=== PATIENT | male | born 1965 | race Caucasian/White ===

== ENCOUNTER 2019-09-02 10:32 | Emergency (ER) | payer SELFPAY ==
[2019-09-02 10:40] VITALS: BP 148/87; PULSE 78; RESP 18; TEMP 37; O2SAT 98
--- NOTE | 2019-09-02 10:52 | ED.EAR ---
HPI - Ear Problem General Chief complaint: Ear Stated complaint: ringing in ear Time Seen by Provider: 09/02/19 10:52 Source: patient and RN notes reviewed Mode of arrival: ambulatory Limitations: no limitations History of Present Illness HPI Narrative: 54-year-old male who presents to [facility] with complaints of ringing in his right ear which started on Wednesday and increased on . Patient states that he has also had some left ear irritation and states that it feels like it is swollen and had used some ear drops in the past to his left ear put he is out. He states that he has had some cold symptoms of nasal drainage and some stuffiness but denies any fever or cough. MD Complaint: ear pain and other (ringing in ears) Location: bilateral Duration: intermittent Severity: mild Relieving factors: nothing Exacerbating factors: nothing Discharge from ear: Reports no Associated symptoms ear: tinnitus and rhinorrhea Treatment prior to arrival: other (sudafed) Related Data Allergies Allergy/AdvReac Type Severity Reaction Status Date / Time No Known Allergies Allergy Unverified 09/02/19 10:49 Review of Systems Review of Systems: All systems reviewed & are unremarkable except as noted in HPI and below Constitutional: Constitutional: Reports as per HPI and Reports no additional constitutional complaints Eyes: Eyes: Reports as per HPI and Reports no additional eye complaints ENT: Reports system reviewed and no additional complaints, except as documented and Reports nasal congestion Comments: tinnitus to right ear.some irritation to left ear canal Cardiovascular: Cardiovascular: Reports as per HPI and Reports no additional cardiovascular complaints Respiratory: Respiratory: Reports as per HPI and Reports no additional respiratory complaints Gastrointestinal: Gastrointestinal: Reports as per HPI and Reports no additional gastrointestinal complaints Genitourinary: Genitourinary: Reports no additional male genitourinary complaints and Reports as per HPI Musculoskeletal: Musculoskeletal: Reports no additional musculoskeletal complaints and Reports as per HPI Integumentary/Breasts: Skin/Breast: Reports system reviewed and no additional complaints, except as docu and Reports as per HPI Neurologic: Reports system reviewed and no additional complaints, except as documented and Reports as per HPI Psychiatric: Psychiatric: Reports no additional psychiatric complaints, Reports as per HPI and Reports depression Endocrine: Endocrine: Reports no additional endocrine complaints and Reports as per HPI Hematologic/Lymphatic: Hematologic/Lymphatic: Reports no additional hematologic/lymphatic complaints and Reports as per HPI Allergic/Immunologic: Allergic/Immunologic: Reports no additional allergic/immunologic complaints and Reports as per [facility] Past Medical History Medical History (Updated 09/05/19 @ 08:32 by Fe Grier NP) Arthritis Bronchitis Depression Hyperlipidemia Hypertension Sinusitis Surgical History Surgical History (Updated 09/05/19 @ 08:28 by Fe Grier NP) History of spinal surgery Social History Social History (Updated 09/05/19 @ 08:27 by Fe Grier NP) Smoking status: Former smoker Smoking end date: 06/28/08 Living arrangements: with family Gender identity (if verbalized by the patient): Male Exam Narrative: Exam Narrative: GENERAL: Well-appearing, well-nourished, and in no acute distress. HEAD: Normocephalic, atraumatic. EYES: PERRLA and EOMI. ENT: Nares clear, no rhinorrhea or epistaxis. Mucous membranes moist. Right TM injected with dull light reflex, left TM normal but redness and irritation of ear canal, throat pink with no lesions or exudate no tonsil enlargement. NECK: Supple. no lymphadenopathy CHEST: Clear to auscultation. No respiratory distress.SAO2 98% on room air HEART: Regular rate and rhythm. No murmur heard. Normal peripheral pulses. ABDOMEN: Soft, nonte
== END 2019-09-02 11:18 | disposition home or self-care (01) ==
PROVIDERS: Emergency Provider Registered Nurse; PCP Family Medicine
DX: H60.502 Unspecified acute noninfective otitis externa, left ear (principal); H65.01 Acute serous otitis media, right ear; Z87.891 Personal history of nicotine dependence
CPT/HCPCS: 99213; G0463